=== PATIENT | male | born 1995 | race Caucasian/White ===

== ENCOUNTER 2020-10-12 10:24 | Inpatient (IN) | payer OTHER, SELFPAY ==
[2020-10-12] VITALS (11 sets, daily range): BP systolic 118–156; BP diastolic 56–95; PULSE 51–81; RESP 12–16; TEMP 36.8–36.9; O2SAT 96–100; BMI 26.3; BMI 23.1
--- NOTE | 2020-10-12 10:27 | ED.RN ---
NO OLD EKG
--- NOTE | 2020-10-12 10:39 | RAD_ITS ---
STUDY: X-RAY CHEST REASON FOR EXAM: Male, 25 years old. chest pain started a couple hours ago TECHNIQUE: Single AP portable view of the chest. COMPARISON: None. FINDINGS: The lungs are clear and expanded. Large left-sided pneumothorax with near-total collapse of the left lung. Normal size heart. Normal mediastinum and bhavin. Normal visualized pulmonary arteries. Normal visualized aortic arch and descending thoracic aorta. Normal visualized thoracic spine. Normal visualized ribs, clavicles, and shoulders. There is no demonstrated abnormality of the visualized soft tissue structures of the upper abdomen. RAD/Chest 1 View (Portable) IMPRESSION: Large left-sided pneumothorax with near-total collapse of the left lung. N.B. : The above information has been verbally conveyed by Donald Kirkland MD to Crow Campos DO on 10/12/2020 11:05:29 (ET). Electronically Signed: Donald Kirkland MD at 11:06 EST Tel , Service support ,
--- NOTE | 2020-10-12 10:39 | EKG12_ITS ---
Test Reason : Blood Pressure : / mmHG Vent. Rate : 051 BPM Atrial Rate : 051 BPM P-R Int : 148 ms QRS Dur : 084 ms QT Int : 444 ms P-R-T Axes : 054 062 051 degrees QTc Int : 409 ms Sinus bradycardia Otherwise normal ECG When compared with ECG of 12-OCT-2020 10:27, MANUAL COMPARISON REQUIRED, DATA IS UNCONFIRMED Confirmed by XI MANN, ALISHA ([id number]), managing editor URSULA VENEGAS ([id number]) on 10/14/2020 12:37:39 PM Referred By: LUAN Confirmed By:ALISHA LAYNE MD
--- NOTE | 2020-10-12 10:39 | ED.VIS.GEN ---
History of Present Illness Chief Complaint: Chest Pain Informant: Patient Narrative: 35-year-old male with no significant medical history presenting with left-sided chest pain. He states that sharp in nature. He states its been there for a couple of days. Patient denies any injury. He denies recent travel, history of DVT/PE, exogenous hormone use. He has not had fever, chills, myalgias, change in taste or smell but does admit to some shortness of breath. Past Medical History - Allergies and Home Meds Allergies/Adverse Reactions: Allergies No Known Allergies Allergy (Verified 10/12/20 10:25) Prior records reviewed: Yes Past Medical History: None Lives: Spouse/ Significant Other Smoking Status: Current every day smoker Alcohol: None Drugs: None Review of Systems General: Denies: Chills, Fever, Sweats Eyes: Denies: Visual changes - bilaterally, Diplopia ENT: Denies: Rhinorrhea, Sore throat Cardiovascular: Reports: Chest pain. Denies: Palpitations, Heart racing Respiratory: Reports: Dyspnea. Denies: Cough, Sputum Gastrointestinal: Denies: Abdominal pain, Nausea, Vomiting, Diarrhea, Melena, Hematochezia Genitourinary: Denies: Dysuria, Hematuria, Frequency Musculoskeletal: Denies: Back pain, Extremity Pain Skin: Denies: Rash, Wounds Neurological: Denies: Headache, Weakness, Numbness Psych: Denies: Depression, Anxiety, Suicidal thoughts, Suicidal ideations, -, - Physical Exam Vital Signs/Narrative: Vital Signs Temp Pulse Resp BP Pulse Ox 10/12/20 10:25 98.2 F 68 14 152/95 H 96 Inital Vital Signs reviewed: Yes General: Well nourished, No Acute Distress Head: Normocephalic, Atraumatic Eyes: Perrl, EOMI Respiratory: No distress, CTA bilaterally Abdomen: Soft, Nontender Back: Nontender, Normal Inspection Skin: Normal color, No rash. Negative for: Cyanosis, Diaphoresis Neurological: Alert, Oriented x3, Cranial nerves II-XII grossly intact Psychological: Normal affect, Normal Mood Diagnostic/Tx/Re-eval - Medical Decision Making 25-year-old male presenting with chest pain for the last 3 days. He states he has had some shortness of breath today. He denies any viral symptoms. Patient had EKG performed on arrival which showed a sinus rhythm at 68 bpm without signs of ischemic change. Patient's heart score is 0. PERC negative. Chest x-ray is interpreted by myself shows a large left-sided pneumothorax. Radiology does agree. Patient's vital signs are stable and he is afebrile. Patient was discussed with Dr. Siddiqui who placed the chest tube.. Repeat chest x-ray shows near complete resolution of pneumothorax. Will be admitted for observation. Impression: 1. Left-sided pneumothorax ED Disposition - Plan for ED Patient:
[2020-10-12 10:47] LABS: Absolute Lymphocyte Count 4.17 X10^3/uL (0.83-4.51); Absolute Neutrophil Count 3.4 X10^3/uL (2.0-7.7); Basophil# 0.05 X10^3/uL; Basophil% 0.6 % (0-1); Eosinophil# 0.25 X10^3/uL; Hematocrit 49.5 % (40-54); Hemoglobin 16.2 g/dL (13.0-16.5); Lymphocyte # 4.17 X10^3/ul (4.0); Lymphocyte % 49.7 % (19-41); Mean Corp Hgb Conc 32.7 g/dL (32-36); Mean Corpuscular Hgb 28.8 pg (27.0-32.0); Mean Corpuscular Volume 88.1 fL (80-94); Mean Platelet Vol. 10.2 fl (6.2-12.0); Monocyte# 0.52 X10^3/uL; Monocyte% 6.2 % (0-10); NRBC Flagged by Analyzer 0 % (0-5); Neutrophil # 3.38 X10^3/uL (2.7-7.7); Neutrophil % 40.3 % (47-70); Platelet Count 273 K/mm3 (150-450); RBC Distribution Width CV 12.2 % (11.6-14.6); RBC Distribution Width SD 39.7 fl (35.1-43.9); Red Blood Count 5.62 M/mm3 (4.6-6.2); White Blood Count 8.4 K/mm3 (4.4-11.0)
[2020-10-12 11:04] LABS: Anion Gap 8 (5-15); BUN 13 mg/dL (7-18); BUN/Creat Ratio 13.7 RATIO (10-20); Calcium,Total 9.2 mg/dL (8.5-10.1); Chloride 105 mmol/L (98-107); Creatinine, Serum 0.95 mg/dL (0.70-1.30); EST Glomerular Filtration Rate 103 mL/min (>60); Est Glom Filt Rate - Afr Amer 124 mL/min (>60); Estimated Creatinine Clearance 130.47 ml/min; Glucose 98 mg/dL (74-106); Potassium 3.8 mmol/L (3.5-5.1); Sodium Level 142 mmol/L (136-145)
--- NOTE | 2020-10-12 11:54 | RAD_ITS ---
STUDY: X-RAY CHEST REASON FOR EXAM: Male, 25 years old. CHEST TUBE PLACEMENT TECHNIQUE: Single AP portable view of the chest. COMPARISON: 10/12/2020 at 1046 FINDINGS: The lungs are clear and expanded. Interval resolution of the left-sided pneumothorax with reexpansion the left lung. Normal size heart. Normal mediastinum and bhavin. Normal visualized pulmonary arteries. Normal visualized aortic arch and descending thoracic aorta. Normal visualized thoracic spine. Normal visualized ribs, clavicles, and shoulders. There is no demonstrated abnormality of the visualized soft tissue structures of the upper abdomen. RAD/Chest 1 View (Portable) IMPRESSION: Interval resolution of left-sided pneumothorax with reexpansion of the left lung. Electronically Signed: Donald Kirkland MD at 12:33 EST Tel , Service support ,
[2020-10-12] MEDS: fentaNYL 100 MCG/2 ML Ampul 25 MCG IV (12:16)
[2020-10-12] MEDS: Ondansetron 4 MG/2 ML Vial IV (12:17)
--- NOTE | 2020-10-12 12:18 | HP.PCM_ITS ---
History of Present Illness Date of Admission: 10/12/20 The patient is a 25 year old M presented with left chest pain and shortness of breath that started today. The patient reports pain especially with taking deep breaths or laying back. He has never had anything this happened in the past. He has no nausea or vomiting or any other symptoms except for shortness of breath and left chest pain. Past Medical History Allergies No Known Allergies Allergy (Verified 10/12/20 10:25) Home Medications: Ambulatory Orders Medication Instructions Recorded No Known/Unobtainable [No Known 06/04/13 Home Medications] Lives: Spouse/ Significant Other Smoking Status: Current every day smoker Tobacco Use: Cigarettes, Vapor Alcohol: None Drugs: None Review of Systems Constitutional: Denies: Anorexia, Fever HEENT: Denies: Difficulty Swallowing Cardiovascular: Reports: Chest Pain Respiratory: Reports: Shortness of Breath Gastrointestinal: Denies: Abdominal Pain, Nausea, Vomiting Genitourinary: Denies: Incontinence Skin: Denies: Jaundice Neurological: Denies: Balance problems VTE Information - Inpt Only VTE Present on Admission: No VTE Mechan Device Prophylaxis: SCD's - Physical Exam Vitals/I&O's: Vital Signs Temp Pulse Resp BP Pulse Ox 98.3 F 65 12 156/79 H 100 10/12/20 11:59 10/12/20 11:55 10/12/20 11:55 10/12/20 11:55 10/12/20 11:55 Oxygen Delivery Method Room Air Weight: 194 lb 0.108 oz Body Mass Index (BMI) 26.3 General: Alert, Oriented x3 Neck: No JVD Lungs: - - Decreased breath sounds on the left Cardiovascular: Regular rate, Regular Rhythm Abdomen: Soft, Non Tender, Non-Distended Musculoskeletal: No Muscle Wasting Microbiology Past 72 Hours 10/12/20 10:45 Mucosa - Nose SARS-CoV-2 Antigen (Rapid) - Final Laboratory Results 10/12/20 10:25: WBC 8.4, RBC 5.62, Hgb 16.2, Hct 49.5, MCV 88.1, MCH 28.8, MCHC 32.7, RDW Std Deviation 39.7, RDW Coeff of Jorge 12.2, Plt Count 273, MPV 10.2, Immature Gran % (Auto) 0.200, Neut % (Auto) 40.3 L, Lymph % (Auto) 49.7 H, [place] % (Auto) 6.2, Eos % (Auto) 3.0, Baso % (Auto) 0.6, Absolute Neuts (auto) 3.4, Absolute Lymphs (auto) 4.17, Nucleated RBC % 0 10/12/20 10:25: Sodium 142, Potassium 3.8, Chloride 105, Carbon Dioxide 29.0, Anion Gap 8, BUN 13, Creatinine 0.95, Estim Creat Clear Calc 130.47, Est GFR (MDRD) Af Amer 124, Est GFR (MDRD) Non-Af 103, BUN/Creatinine Ratio 13.7, Glucose 98, Calcium 9.2, Troponin I < 0.015 Current Medications Acetaminophen (Acetaminophen 325 Mg Tablet) 650 mg PO Q4H PRN PRN PRN Reason: P/F Sodium Chloride () 1,000 mls @ 15 mls/hr IV .Q48H LEONCIO Ketorolac Tromethamine (Ketorolac 15 Mg/Ml Vial) 15 mg IV Q8H PRN PRN PRN Reason: Pain Score 4-10 Stop: 10/14/20 12:17 Morphine Sulfate (Morphine 2 Mg/Ml Syringe) 2 - 4 mg IV Q2H PRN PRN PRN Reason: Pain Score 4-10 Ondansetron HCl (Ondansetron 4 Mg/2 Ml Vial) 4 mg IV Q6H PRN PRN PRN Reason: NAUSEA Assessment/Plan All Active Problems Laceration (Acute) 25-year-old male with spontaneous left pneumothorax 1. The patient had chest x-ray shows spontaneous large left pneumothorax. I discussed this with him and recommended percutaneous left chest tube placement for resolution of this. I discussed the procedure with him in detail. I discussed the risks including but not limited to bleeding, infection, injury to heart or lung, need for larger tube or repositioning of tube. Patient understood the risks and was consented for a left percutaneous chest tube placement. 2. Patient had percutaneous left chest tube placement in the emergency room. It seemed to almost fully resolve the pneumothorax. There is still an intermittent air leak. The patient will be admitted with chest tube to suction and have repeat chest x-ray in the morning. Joseluis Siddiqui MD Pager: [facility] [address] [place] [address], [address] [place] [phone] Office:
--- NOTE | 2020-10-12 12:20 | PCM.OPRPT ---
Problem List (1) Pneumothorax, left Status: Acute Report of Operation Date of Procedure: 10/12/20 Pre-Operative Diagnosis: Left pneumothorax Post-Operative Diagnosis: Same Surgery/Procedure Performed:: Percutaneous left chest tube placement Description of Procedure: Patient was consented for procedure and the left chest was prepped and draped in usual sterile fashion. An area on the upper left chest was selected and local anesthetic was injected to the skin and a small robina was made with a scalpel. Using a large needle more local was injected in the intercostal space and pleura. Next the large needle with catheter over was placed through this incision and just over rib into the pleural space and air was aspirated. The catheter was advanced removing the needle. This was then placed to suction and there was a large reeves of air. The catheter was sutured to the skin using the included silk suture and then taped. The Pleur-evac was placed to -20 of suction. After the pneumothorax was fully resolved there was an intermittent air leak that remained. There was minimal fluid removed. There was no bleeding. Chest x-ray will be obtained post procedure. Grafts/Implants Used: 8 Telugu percutaneous chest tube - Admit VTE Documentation VTE Mechan Device Prophylaxis: SCD's
[2020-10-12] MEDS: 0.9% Normal Saline 1,000 ML 15 ML IV (13:32)
[2020-10-12] MEDS: Morphine 2 MG/ML Syringe IV ×2 (13:36→19:19)
[2020-10-12] MEDS: Ketorolac 15 MG/ML Vial IV (15:50)
[2020-10-13] VITALS (14 sets, daily range): BP systolic 106–142; BP diastolic 56–75; PULSE 46–74; RESP 16–18; TEMP 36.6–37.2; O2SAT 96–100
[2020-10-13] MEDS: Ketorolac 15 MG/ML Vial IV ×2 (02:12→13:42)
--- NOTE | 2020-10-13 05:55 | RAD_ITS ---
We are attempting to reach an attending provider to discuss findings. An addendum with communication details will be sent when the communication is complete. HISTORY: left pneumothorax ADDITIONAL HISTORY: None provided. COMPARISON: 10/12/2020 EXAMINATION/TECHNIQUE: XR Chest 2 Views Number of images including paperwork: 2 FINDINGS: LUNGS AND PLEURA: Moderate to large left pneumothorax, significant interval increase. The right lung is hyperexpanded but clear. CARDIAC SILHOUETTE: Stable. MEDIASTINUM AND LEX: Stable. UPPER ABDOMEN: Unremarkable. SKELETON AND SOFT TISSUES: No acute findings. OTHER DEVICES AND HARDWARE: Small bore left chest tube. RAD/Chest PA and Lateral IMPRESSION: Increasing left pneumothorax, currently moderate to large in size. at 0714 Reported and signed by: Cassidy Muhammad MD Electronically Signed: Cassidy Muhammad MD at 7:14 EST Tel , Service support ,
--- NOTE | 2020-10-13 07:45 | RAD_ITS ---
STUDY: X-RAY CHEST REASON FOR EXAM: Male, 25 years old. manipulation of chest tube TECHNIQUE: Single AP portable view of the chest. COMPARISON: 10/13/2020 at 06 53 FINDINGS: Left-sided small bore thoracostomy tube with a small apical left pneumothorax. The lungs are clear and expanded. There is no demonstrated pleural abnormality. Normal size heart. Normal mediastinum and bhavin. Normal visualized pulmonary arteries. Normal visualized aortic arch and descending thoracic aorta. Normal visualized thoracic spine. Normal visualized ribs, clavicles, and shoulders. There is no demonstrated abnormality of the visualized soft tissue structures of the upper abdomen. RAD/Chest 1 View (Portable) IMPRESSION: Left small bore thoracostomy tube with small apical left pneumothorax improved when compared with the prior study. Electronically Signed: Donald Kirkland MD at 9:18 EST Tel , Service support ,
--- NOTE | 2020-10-13 08:12 | NURSING ---
supplies at bedside as requested by Dr. Siddiqui. Pt denies all s/s distress. 2lnc placed. notable bubble in chesttube canester intermittently. connections all taped, dressing further taped. Primary RN aware. call light within reach.
[2020-10-13] MEDS: LORazepam 2 MG/ML Syringe IV (09:03)
--- NOTE | 2020-10-13 09:14 | RAD_ITS ---
STUDY: X-RAY CHEST REASON FOR EXAM: Male, 25 years old. chest tube placement TECHNIQUE: Single AP portable view of the chest. COMPARISON: 10/14/2019 08/14/1938 FINDINGS: Interval placement of left-sided thoracostomy tube with no change in the small apical left pneumothorax. The lungs are clear and expanded. There is no demonstrated pleural abnormality. Normal size heart. Normal mediastinum and bhavin. Normal visualized pulmonary arteries. Normal visualized aortic arch and descending thoracic aorta. Normal visualized thoracic spine. Normal visualized ribs, clavicles, and shoulders. There is no demonstrated abnormality of the visualized soft tissue structures of the upper abdomen. RAD/Chest 1 View (Portable) IMPRESSION: Interval placement of left-sided thoracostomy tube with no change in the small apical pneumothorax per Electronically Signed: Donald Kirkland MD at 9:49 EST Tel , Service support ,
[2020-10-13] MEDS: Lidocaine 2% (20 ml mdv) 20 ML Vial INFILT ×2 (09:15→09:50)
[2020-10-13] MEDS: Morphine 4 MG/ML Syringe IV ×3 (09:45→18:42)
[2020-10-13] MEDS: 0.9% Saline Lock 10 ML Syringe IV ×3 (09:45→18:43)
--- NOTE | 2020-10-13 10:05 | PCM.PN.SRG ---
Patient Problems: Active and Suspected Problems Pneumothorax, left (Acute) Subjective: The patient had no issues overnight but he did note that the tube continue to bubble. - Physical Exam Vitals/I&O's: Vital Signs Temp Pulse Resp BP Pulse Ox 97.9 F 58 L 18 142/73 H 100 10/13/20 09:46 10/13/20 09:46 10/13/20 09:46 10/13/20 09:46 10/13/20 09:46 Oxygen Flow Rate (L/min) 2 Oxygen Delivery Method Nasal Cannula Weight: 170 lb 12.573 oz Body Mass Index (BMI) 23.1 Intake and Output for Last 24 Hours 10/11/20 10/12/20 10/13/20 23:59 23:59 23:59 Intake Total 450 / 450 254.5 / 254.5 Output Total 600 / 600 700 / 700 Balance -150 / -150 -445.5 / -445.5 General: Alert, Oriented x3 Neck: No JVD Lungs: - - Positive air leak Cardiovascular: Regular rate, Regular Rhythm Abdomen: Soft, Non Tender, Non-Distended Microbiology Past 72 Hours 10/12/20 10:45 Mucosa - Nose SARS-CoV-2 Antigen (Rapid) - Final Laboratory Results 10/12/20 10:25: WBC 8.4, RBC 5.62, Hgb 16.2, Hct 49.5, MCV 88.1, MCH 28.8, MCHC 32.7, RDW Std Deviation 39.7, RDW Coeff of Jorge 12.2, Plt Count 273, MPV 10.2, Immature Gran % (Auto) 0.200, Neut % (Auto) 40.3 L, Lymph % (Auto) 49.7 H, [place] % (Auto) 6.2, Eos % (Auto) 3.0, Baso % (Auto) 0.6, Absolute Neuts (auto) 3.4, Absolute Lymphs (auto) 4.17, Nucleated RBC % 0 10/12/20 10:25: Sodium 142, Potassium 3.8, Chloride 105, Carbon Dioxide 29.0, Anion Gap 8, BUN 13, Creatinine 0.95, Estim Creat Clear Calc 130.47, Est GFR (MDRD) Af Amer 124, Est GFR (MDRD) Non-Af 103, BUN/Creatinine Ratio 13.7, Glucose 98, Calcium 9.2, Troponin I < 0.015 Current Medications Acetaminophen (Acetaminophen 325 Mg Tablet) 650 mg PO Q4H PRN PRN PRN Reason: Pain 1-10 or Fever Sodium Chloride () 1,000 mls @ 15 mls/hr IV .Q48H LEONCIO Last Infusion: 10/13/20 06:30 Dose: 0 mls/hr Documented by: Sodium Chloride () 250 mls @ 15 mls/hr IV .[id number] PRN PRN Reason: Saline Flush Sodium Chloride () 250 mls @ 15 mls/hr IV .[id number] PRN PRN Reason: Additional IVPB Infusion Ketorolac Tromethamine (Ketorolac 15 Mg/Ml Vial) 15 mg IV Q8H PRN PRN PRN Reason: Pain Score 4-10 Stop: 10/17/20 12:18 Last Admin: 10/13/20 02:12 Dose: 15 mg Documented by: Morphine Sulfate (Morphine 2 Mg/Ml Syringe) 2 - 4 mg IV Q2H PRN PRN PRN Reason: Pain Score 4-10 Last Admin: 10/12/20 19:19 Dose: 2 mg Documented by: Morphine Sulfate (Morphine 4 Mg/Ml Syringe) 2 - 4 mg IV Q2H PRN PRN PRN Reason: Pain Score 4-10 Last Admin: 10/13/20 09:45 Dose: 4 mg Documented by: Ondansetron HCl (Ondansetron 4 Mg/2 Ml Vial) 4 mg IV Q6H PRN PRN PRN Reason: NAUSEA Sodium Chloride (0.9% Saline Lock 10 Ml Syringe) 10 - 40 ml IV UD PRN PRN Reason: SALINE FLUSH Last Admin: 10/13/20 09:45 Dose: 20 ml Documented by: Medical Necessity - Tobacco Use Smoking Status: Current every day smoker Tobacco Use: Cigarettes, Vapor Assessment/Plan All Active Problems Pneumothorax, left (Acute) Laceration (Acute) 25-year-old male spontaneous left pneumothorax 1. The patient had return of left pneumothorax this morning on chest x-ray from only being disconnected from the suction for short amount of time. Once the tube was replaced to suction this resolved and was confirmed with a second chest x-ray. The patient does have ongoing air leak and so I recommended a larger bore chest tube replaced. I discussed the risks of bleeding infection and injury to underlying organs with him and then placed a 28 Armenian chest tube on the left side. His prior chest tube was removed. This was placed to suction and the patient did have an intermittent air leak. Chest x-ray was obtained and I will continue to observe the patient for 24 more hours on suction. If the air leak does not resolve I will transfer him to a tertiary care center with a thoracic surgery. Joseluis Siddiqui MD Pager: [facility] [address] [place] [address] [address] [place] [address] Office:
--- NOTE | 2020-10-13 10:08 | PCM.OPRPT ---
Problem List (1) Pneumothorax, left Status: Acute Report of Operation Date of Procedure: 10/13/20 Pre-Operative Diagnosis: Persistent pneumothorax Post-Operative Diagnosis: Same Surgery/Procedure Performed:: Placement of left chest tube Description of Procedure: The patient's prior chest tube was unbandaged and the suture was removed. The percutaneous chest tube was removed. The left chest was prepped and draped in the usual sterile fashion. An area was selected inferior to the prior incision and this was injected with copious local anesthetic. A small incision was made in the skin and deepened to the subcutaneous tissue. More local incision was injected into the intercostals and the pleura. A hemostat was used to gain entry into the pleura and there was a reeves of air. A 28 Citizen [place] chest tube was placed directed anteriorly and superiorly. The chest tube was then sutured to the skin using 2-0 [place] suture. The skin incision was tightened using 2-0 [place] suture. The chest tube was then placed to suction. Patient tolerated the procedure well and dressings were applied. Chest x-ray will be obtained. Grafts/Implants Used: 28 [place] chest tube - Admit VTE Documentation VTE Mechan Device Prophylaxis: SCD's
--- NOTE | 2020-10-13 10:48 | CASEMGMT ---
SW met w/pt in room as pt is listed as self-pay. Pt states was in the process of getting insurance through work and then this all happened. SW gave pt information for pt financial assistance here, along with a Medicaid application and the 800 number to call. SW suggested to pt to call the 800 number to see if he would qualify. SW also gave pt information on Alecia Jimenez, People to People, 211, and prescription assist programs. SW gave pt list of PCPs in the area as well. SW also spoke w/pt about what happened that caused him to be here in the hospital. Pt states this has been a wakeup call and he plans to quit smoking. No further social service needs are anticipated, SW is available should any additional needs arise. ROSEMARY Green
--- NOTE | 2020-10-13 12:00 | CASEMGMT ---
RN CRISTOFER Face to Face with patient for initial transition planning/care coordination assessment. RN CM introduced self and role at [facility]. Patient lying in bed, alert and oriented, girlfriend at bedside. Patient willing to participate in assessment and is able to answer all questions appropriately. Care providers, pharmacy, and demographics verified. Patient wishes to discharge home, denies need for home health at this time. Patient states he has no further needs or concerns at this time. CM to follow for discharge planning needs that may arise. PCP: no PCP, list was provided to patient Specialists: none Preferred Pharmacy: [facility] Insurance: none, SW saw for SP Prescription Benefit: none Living Will/HPOA: none LNOK: mother, girlfriend Living Arrangements: Patient lives with girlfriend in a duplex. Patient is independent and ambulates stairs. Transportation: self/girlfriend DME/HHC: Patient denies DME or previous HHC. Disposition Plan: Patient to discharge home with family support and follow-up plans in place. Humera RUFF, RN, CM
--- NOTE | 2020-10-13 13:43 | RAD_ITS ---
STUDY: X-RAY CHEST REASON FOR EXAM: Male, 25 years old. chest tube pain TECHNIQUE: Single AP portable view of the chest. COMPARISON: 10/13/2020 at 09 28 FINDINGS: Left-sided thoracostomy tube with no change in the small pneumothorax. The lungs are clear and expanded. There is no demonstrated pleural abnormality. Normal size heart. Normal mediastinum and bhavin. Normal visualized pulmonary arteries. Normal visualized aortic arch and descending thoracic aorta. Normal visualized thoracic spine. Normal visualized ribs, clavicles, and shoulders. There is no demonstrated abnormality of the visualized soft tissue structures of the upper abdomen. RAD/Chest 1 View (Portable) IMPRESSION: No change from earlier today. Electronically Signed: Donald Kirkland MD at 13:55 EST Tel , Service support ,
--- NOTE | 2020-10-13 15:47 | EKG12_ITS ---
Test Reason : CP Blood Pressure : / mmHG Vent. Rate : 068 BPM Atrial Rate : 068 BPM P-R Int : 144 ms QRS Dur : 092 ms QT Int : 408 ms P-R-T Axes : 068 085 058 degrees QTc Int : 433 ms Normal sinus rhythm with sinus arrhythmia Normal ECG Confirmed by BOYD MANN, STEPHEN ([id number]), slot editor URSULA VENEGAS ([id number]) on 10/15/2020 10:47:22 AM Referred By: APRIL Confirmed By:STEPHEN NIX MD
--- NOTE | 2020-10-13 17:54 | PN_ITS ---
Progress Note The patient had increased pneumothorax this morning. The percutaneous tube was replaced with a 20 Slovak chest tube. The patient has persistent air leak especially with coughing or taking deep breaths. The air leak has persisted and not decreased. I discussed with the cardiothoracic surgeon at [facility] he is excepted the patient for transfer. Joseluis Siddiqui MD Pager: [facility] [address] [place] [address], [address] [place] [address] Office: [facility] Vital Signs/Narrative: Vital Signs Pulse Resp 10/13/20 14:00 47 L 18
--- NOTE | 2020-10-13 17:54 | PCM.PN.BLA ---
Progress Note The patient had increased pneumothorax this morning. The percutaneous tube was replaced with a 20 Albanian chest tube. The patient has persistent air leak especially with coughing or taking deep breaths. The air leak has persisted and not decreased. I discussed with the cardiothoracic surgeon at [facility] he is excepted the patient for transfer. Joseluis Siddiqui MD Pager: [facility] [address] [place] [address], [address] [place] [address] Office: [facility] Vital Signs/Narrative: Vital Signs Pulse Resp 10/13/20 14:00 47 L 18
--- NOTE | 2020-10-13 20:20 | NURSING ---
Physicians transport arrived to transport pt to [place]. Chest tube was secure with slight bubbling, no crepitis, good lungs sounds. vitals wnl. Left unit at 2017.
== END 2020-10-13 20:17 | disposition short-term general hospital (02) | DRG 201 ==
LOC: ED 11:23 → MS3 12:33
PROVIDERS: Admitting Provider Surgery; Emergency Provider Student in an Organized Health Care Education/Training Program; Visit Provider Surgery
DX: J93.82 Other air leak (principal); F17.210 Nicotine dependence, cigarettes, uncomplicated
CPT/HCPCS: 32551; 71045; 71046; 80048; 84484; 85025; 87426; 93005; 99251; 99285; 99406; J7030; A4216; G0463; J2405

== ENCOUNTER → 2020-10-23 12:20 | Outpatient (CLI) | payer SELFPAY ==
[2020-10-12 13:03] VITALS: BMI 23.1
--- NOTE | 2020-10-23 12:33 | RAD_ITS ---
STUDY: X-RAY - ABDOMEN/PELVIS REASON FOR EXAM: Male, 25 years old. CONSTIPATION POST LUNG SURGERY TECHNIQUE: Single AP view of the abdomen / pelvis. COMPARISON: None. FINDINGS: Normal visualized lung bases. There is an unremarkable bowel gas pattern. The visualized liver, spleen and kidneys are grossly normal in size and morphology. Normal soft tissue structures. Normal visualized osseous structures. RAD/Abdomen Single View IMPRESSION: Normal x-ray examination of the abdomen and pelvis. Electronically Signed: Donald Kirkland MD at 16:55 EDT Tel , Service support ,
== END ==
LOC: RAD 12:22
PROVIDERS: Visit Provider Thoracic Surgery (Cardiothoracic Vascular Surgery)
DX: K59.00 Constipation, unspecified (principal)
CPT/HCPCS: 74018

== ENCOUNTER → 2025-01-09 | Outpatient (CLI) | payer OTHER, SELFPAY ==
[2025-01-09 08:08] LABS: Bacteria 0 SEEN /hpf (None Seen); Mucous, Urine 0 SEEN /hpf (<or=2+); Red Blood Cells-Urine 0 SEEN /hpf (0-5); Squamous Epithelial Cells - UA 0 SEEN /hpf (0-5); White Blood Cells 0 SEEN /hpf (0-5)
[2025-01-09 11:08] LABS: Color, Urine Yellow (Yellow); Glucose, Dipstick Normal (Normal); Ketone-Dipstick Negative (Negative); Leukocyte Esterase-Dipstick Negative /ul (Negative); Nitrite-Dipstick Negative (Negative); Occult Blood-Urine Negative /ul (Negative); Protein-Dipstick Negative (Negative); Specific Gravity, Urine 1.025 (1.002-1.030); Urine Bilirubin Dipstick Negative (Negative); Urine Clarity Clear (Clear); Urine Urobilinogen Normal (Normal)
== END | disposition home or self-care (01) ==
PROVIDERS: Referring Provider Physician Assistant; Visit Provider Physician Assistant
DX: Z11.3 Encounter for screening for infections with a predominantly sexual mode of transmission (principal)
CPT/HCPCS: 81001; 87491; 87591

== ENCOUNTER → 2025-03-15 | Outpatient (CLI) | payer OTHER, SELFPAY | END | disposition home or self-care (01) | LOC: LABSPEC 12:38 | PROVIDERS: Referring Provider Physician Assistant Surgical; Visit Provider Physician Assistant Surgical | DX: Z20.2 Contact with and (suspected) exposure to infections with a predominantly sexual mode of transmission (principal) | CPT/HCPCS: 87491; 87591 ==

== ENCOUNTER → 2025-04-17 | Outpatient (CLI) | payer OTHER, SELFPAY ==
[2025-04-17 15:44] LABS: Hematocrit 47.8 % (40-54); Hemoglobin 16.3 g/dL (13.0-16.5); Immature Granulocytes Count 0.020 X10^3/uL (0.0-0.0); Mean Corp Hgb Conc 34.1 g/dL (32-36); Mean Corpuscular Volume 87.4 fL (80-94); Mean Platelet Vol. 9.9 fl (6.2-12.0); NRBC Flagged by Analyzer 0 % (0-5); Platelet Count 299 K/mm3 (150-450); RBC Distribution Width CV 13.2 % (11.6-14.6); RBC Distribution Width SD 42.8 fl (35.1-43.9); Red Blood Count 5.47 M/mm3 (4.6-6.2); White Blood Count 10.7 K/mm3 (4.4-11.0)
[2025-04-17 16:13] LABS: AST(SGOT) 37 U/L (<=37); Alanine Aminotransfer ALT/SGPT 29 U/L (<=46); Albumin, Serum 4.9 g/dL (3.5-5.0); Alkaline Phosphatase 60 U/L (40-129); Anion Gap 12 (5-15); BUN 12 mg/dL (4-19); BUN/Creat Ratio 10.9 RATIO (10-20); Calcium,Total 9.9 mg/dL (7.6-11.0); Carbon Dioxide 25.9 mmol/L (21.0-32.0); Chloride 100 mmol/L (98-108); Cholesterol 144 mg/dL (<=200); Globulin 3.3 g/dL (2.2-4.2); Glucose 87 mg/dL (70-99); Low Density Lipoprotein Calc. 89 mg/dL; Potassium 3.8 mmol/L (3.3-5.1); Triglycerides 83 mg/dL; Very Low Density Lipoprotein 17 mg/dL (5-40); cholesterol:hdl ratio screen 3.72
== END | disposition home or self-care (01) ==
PROVIDERS: PCP Family Medicine
DX: Z79.899 Other long term (current) drug therapy (principal)
CPT/HCPCS: 36415; 80053; 80061; 85025